=== PATIENT | female | born 1980 | race African-American/Black ===

== ENCOUNTER → 2017-07-13 | Outpatient (CLI) | payer MEDICAID ==
--- NOTE | 2017-07-13 16:24 | RADIOLOGY REPORT (SQ) ---
EXAM DESCRIPTION: U/S OB 14+ TRNABD 1GES W/O DOP COMPLETED DATE/TIME: 07/13/2017 2:36 pm REASON FOR STUDY: ENCOUNTER FOR SUPERVISION OF OTHER NORMAL , SECOND TRIMESTER (Z34. Z34.82 ENCOUNTER FOR SUPRVSN OF NORMAL , SECOND TRI COMPARISON: No previous imaging this TECHNIQUE: Static and Dynamic grayscale imaging performed of gravid uterus using transabdominal appr oach. Additional selected color Doppler and spectral images recorded. All stored on PACS. LIMITATIONS: None. FINDINGS: EGA: 26 weeks 4 days JOSE: 10/15/2017 EFW: 892 grams PERCENTILE: 42nd percentile JEANNIE: Largest pocket 4 cm PLACENTA: Posterior GRADE: I PRESENTATION: Cephalic. ANATOMY: HEART RATE: 150 beats per minute. FOUR CHAMBER HEART: Visualized. THREE VESSEL CORD: Yes. CORD INSERTION: Visualized. KIDNEYS AND BLADDER: Visualized. Appear normal. STOMACH: Visualized. Appears normal. SPINE: Normal as visualized. BRAIN AND LATERAL VENTRICLES: Limited view, head in the maternal pelvis, posterior fossa struct ures not well visualized. OTHER: No other significant finding. MATERNAL ADNEXA: Maternal ovaries not visualized. CERVICAL LENGTH: 3.6 cm Closed. OTHER: No other significant finding. IMPRESSION: LIVING INTRAUTERINE . ESTIMATED GESTATIONAL AGE 26 weeks 4 days NO VISUALIZED ANOMALIES. Trimester of : Second trimester - 13 weeks 1 day to 27 weeks 6 days. TECHNICAL DOCUMENTATION: JOB ID: [id number] [email or web address]- All Rights Reserved
== END ==
LOC: RAD 13:38
PROVIDERS: ATTEND Nurse Practitioner Women's Health
DX: Z34.82 Encounter for supervision of other normal pregnancy, second trimester (principal)
CPT/HCPCS: 76805

== ENCOUNTER 2017-11-06 09:00 | Inpatient (IN) | payer MEDICAID ==
--- NOTE | 2017-11-06 21:32 | Admission Physical ---
Datetime Report Generated by CPN: 11/06/2017 21:32 CURRENT ADMISSION Chief Complaint: Uterine Contractions Indication for Induction: Not Applicable Indication for Induction: Postterm, Intrauterine ; Active Labor Admit Plan: Admit to Unit; Initiate Labor Protocol Admit Plan- Other: patient not seen in OB office since 2016. Was supposed to come for assessment at that visit due to oligo but did not come. ALLERGIES Medication Allergies: Yes Medication Allergies: No Known Drug Allergies (07/30/2015) Medication Allergies: Sulfas Latex: No Latex Allergies Food Allergies: n/a Environmental Allergies: n/a OBSTETRICAL HISTORY EDC: 10/16/2017 00:00 : 3 Para: 2 Term: 2 : 0 SAB: 0 IAB: 0 Ectopic: 0 Livin Cesareans: 0 VBACs: 0 Multiple Births: 0 Gestational Diabetes: No Rh Sensitization: No Incompetent Cervix: No CHLOÉ: No Infertility: No ART Treatment: No Uterine Anomaly: No IUGR: No Hx Previous C/S: No Macrosomia: No Hx Loss/Stillborn: No PIH: No Hx : No Placenta Previa/Abruption: No Depression/PP Depression: No PTL/PROM: No Post Hemorrhage: Yes Obstetrical History Comments: G1 2013, male, , hemorrhage G2 2014, male, , 10lb baby G3 current, lpnc SEE RECORDS Alcohol: No Marijuana : No Cocaine: No Other Illicit Drugs: No Cigarettes: Current Everyday Smoker. [id number] MEDICAL HISTORY Diabetes: No Blood Transfusion: No Pulmonary Disease (Asthma, TB): No Breast Disease: No Hypertension: No Admissions Manager Rn Surgery: No Heart Disease: No Hosp/Surgery: Yes Autoimmune Disorder: No Anesthetic Complications: No Kidney Disease: No Abnormal Pap Smear: No Neuro/Epilepsy: No Psychiatric Disorders: No Other Medical Diseases: No Hepatitis/Liver Disease: No Significant Family History: No Varicosities/Phlebitis: No Trauma/Violence : No Thyroid Dysfunction: No Medical History Comments: anemia, childbirth INFECTIOUS HISTORY Gonorrhea: No Genital Herpes: Yes Chlamydia: No Tuberculosis: No Syphilis: No Hepatitis: No HIV/AIDS Exposure: No Rash or Viral Illness: No HPV: No Infectious History Comments: trichomonas PHYSICAL EXAM General: Normal HEENT: Normal Neurologic: Normal Thyroid: Normal Heart: Normal Lungs: Normal Breast: Normal Back: Normal Abdomen: Normal Genitourinary Exam: Normal Extremities: Normal DTRs: Normal Pelvic Type: Adequate Vital Signs: Reviewed VAGINAL EXAM Dilatation: 9 Effacement: 100 Station: 2 MEMBRANES Pooling: Positive Membranes: Ruptured Amniotic Fluid Color: Meconium, Heavy FETUS A EGA: 43.0 Monitoring: External US FHR- Baseline: 150 Variability: Moderate 6-25bpm Accelerations: 10X10 Decelerations: None FHR Category: Category II Estimated Weight (gm): 4000 Presentation: Vertex PLANS FOR LABOR AND DELIVERY Labor and Delivery: None Pain Management: Natural; Medications; Epidural Feeding Preference: Formula Benefit of Breast Feed Discussed: Yes Circumcision: No INFORMED CONSENT Signature: with User ID: [email or web address]
[2017-11-06] MEDS ORDERED: PROMETHAZINE HCL 25 MG TABLET PO PRN (21:40)
[2017-11-06] MEDS ORDERED: PROMETHAZINE HCL INJ 25 MG/1 ML VIAL IV PRN (21:40)
[2017-11-06] MEDS ORDERED: DIPHENHYDRAMINE HCL 25 MG CAPSULE PO PRN (21:40)
[2017-11-06] MEDS ORDERED: PSEUDOEPHEDRINE HCL 30 MG TABLET PO PRN (21:40)
[2017-11-06] MEDS ORDERED: ACETAMINOPHEN 650 MG SUPP.RECT PR PRN (21:40)
[2017-11-06] MEDS ORDERED: PROMETHAZINE HCL 25 MG SUPP.RECT PR PRN (21:40)
[2017-11-06] MEDS ORDERED: GLYCERIN/WITCH HAZEL LEAF 1 EACH MED..PAD TP PRN (21:40)
[2017-11-06] MEDS ORDERED: ACETAMINOPHEN 325 MG TABLET PO PRN (21:40)
[2017-11-06] MEDS ORDERED: IBUPROFEN 800 MG TABLET ONE (22:45)
[2017-11-07] MEDS: FAMOTIDINE 20 MG TABLET PO SCH ×3 (00:06→22:45)
[2017-11-07] MEDS ORDERED: BENZOCAINE/MENTHOL AEROSOL SPRAY 56 ML TOP PRN (01:33)
[2017-11-07] MEDS ORDERED: MEASLES,MUMPS&RUBELLA VACC/PF 0.5 ML VIAL SUBCUT PRN (01:33)
[2017-11-07] MEDS ORDERED: DIBUCAINE 1% OINTMENT 28 GM PR PRN (01:33)
[2017-11-07] MEDS ORDERED: ZOLPIDEM TARTRATE 5 MG TABLET PO PRN (01:33)
[2017-11-07] MEDS ORDERED: DIPH/PERTUSS(ACELL)/TETANUS VAC/PF 0.5 ML SYR (>=10YO) IM PRN (01:33)
[2017-11-07] MEDS ORDERED: ACETAMINOPHEN WITH CODEINE #3 TABLET PO PRN ×2 (01:33)
[2017-11-07] MEDS ORDERED: MISOPROSTOL 0.1 MG TABLET PR ONE (01:45)
[2017-11-07 03:22] LABS: ABSOLUTE EOSINOPHILS # (AUTO) 0.1 10^3/uL (0.0-0.6); ABSOLUTE LYMPHOCYTES (AUTO) 2.7 10^3/uL (0.5-4.7); ABSOLUTE MONOCYTES (AUTO) 1.1 10^3/uL (0.1-1.4); BASOPHILS % (AUTO) 0.3 % (0-2); EOSINOPHILS % (AUTO) 0.4 % (0-6); HEMATOCRIT 30.9 % (36.0-47.0); HEMOGLOBIN 9.8 g/dL (12.0-15.5); LYMPHOCYTES % (AUTO) 19.6 % (13-45); MEAN CORPUSCULAR HEMOGLOBIN 24.6 pg (27.0-33.4); MEAN CORPUSCULAR HGB CONC 31.7 g/dL (32.0-36.0); MEAN CORPUSCULAR VOLUME 78 fl (80-97); MONOCYTES % (AUTO) 8.1 % (3-13); PLATELET COUNT 205 10^3/uL (150-450); RED BLOOD COUNT 3.98 10^6/uL (3.72-5.28); RED CELL DISTRIBUTION WIDTH 16.6 % (11.5-14.0); SEGMENTED NEUTROPHILS % (AUTO) 71.6 % (42-78); TOTAL CELLS COUNTED % (AUTO) 100 %; WHITE BLOOD COUNT 13.9 10^3/uL (4.0-10.5)
[2017-11-07] MEDS: IBUPROFEN 800 MG TABLET PO SCH ×3 (06:34→22:43)
[2017-11-07 06:49] LABS: HEMATOCRIT 22.1 % (36.0-47.0); MEAN CORPUSCULAR HEMOGLOBIN 25.1 pg (27.0-33.4); MEAN CORPUSCULAR HGB CONC 32.3 g/dL (32.0-36.0); MEAN CORPUSCULAR VOLUME 78 fl (80-97); PLATELET COUNT 139 10^3/uL (150-450); RED BLOOD COUNT 2.85 10^6/uL (3.72-5.28); RED CELL DISTRIBUTION WIDTH 16.4 % (11.5-14.0); WHITE BLOOD COUNT 14.6 10^3/uL (4.0-10.5)
[2017-11-07 07:37] LABS: HEMOGLOBIN 7.1 g/dL (12.0-15.5)
--- NOTE | 2017-11-07 09:16 | PDOC PROGRESS REPORT ---
Subjective-OB Subjective: Post Delivery Day: 37 year old. Denies any needs at this time Physical Exam (OB) Vital Signs: Temp Pulse Resp BP Pulse Ox 98.3 F 86 18 125/93 H 100 11/07/17 07:51 11/07/17 07:51 11/07/17 07:51 11/07/17 07:51 11/07/17 07:51 Intake & Output 11/06/17 11/07/17 11/08/17 06:59 06:59 06:59 Weight 92.27 kg - General In distress: None - PIH/Pre-Eclampsia DTR's: 1 + Clonus: Negative Headache: Present Epigastric Pain: No Visual Changes: No - Lochia Lochia Amount: Small 10-25 ml Lochia Color: Rubra/Red - Abdomen Description: Soft, Round Hernia Present: No Flatus Presence: Present Fundal Description: Firm, Non-Midline Describe if Not Midline: slightly deviated to the left Fundal Height: u/u - u/2 - Respiratory Breath sounds: Clear - Extremities Calf: Normal, Nontender Objective-Diagnostic Laboratory: 11/07/17 06:30 11/06/17 11/06/17 11/07/17 14:31 14:31 06:30 WBC 13.9 H 14.6 H RBC 3.98 2.85 L Hgb 9.8 L 7.1 L D Hct 30.9 L 22.1 L MCV 78 L 78 L MCH 24.6 L 25.1 L MCHC 31.7 L 32.3 RDW 16.6 H 16.4 H Plt Count 205 139 L Seg Neutrophils % 71.6 Lymphocytes % 19.6 Monocytes % 8.1 Eosinophils % 0.4 Basophils % 0.3 Absolute Neutrophils 10.0 H Absolute Lymphocytes 2.7 Absolute Monocytes 1.1 Absolute Eosinophils 0.1 Absolute Basophils 0.0 Blood Type B POSITIVE Antibody Screen NEGATIVE Assessment and Plan(PN) - Assessment and Plan (1) Normal vaginal delivery Is this a current diagnosis for this admission?: Yes - Time Spent with Patient Time with patient: Less than 15 minutes - Disposition Anticipated Discharge: Home Within: within 24 hours - continue present plan of management
[2017-11-07] MEDS: SENNOSIDES/DOCUSATE 8.6-50 MG 1 EACH TABLET PO SCH (11:47)
[2017-11-07] MEDS: DOCUSATE SODIUM 100 MG CAPSULE PO SCH ×2 (11:47→18:09)
[2017-11-07] MEDS: FERROUS SULFATE 325 MG TABLET PO SCH ×2 (11:48→18:09)
[2017-11-07] MEDS: PRENATAL VITAMIN W DHA CAPSULE PO SCH (11:48)
[2017-11-08] MEDS: IBUPROFEN 800 MG TABLET PO SCH ×3 (05:28→22:31)
[2017-11-08] MEDS: PRENATAL VITAMIN W DHA CAPSULE PO SCH (09:10)
[2017-11-08] MEDS: DOCUSATE SODIUM 100 MG CAPSULE PO SCH ×2 (09:10→18:43)
[2017-11-08] MEDS: SENNOSIDES/DOCUSATE 8.6-50 MG 1 EACH TABLET PO SCH (09:10)
[2017-11-08] MEDS: FERROUS SULFATE 325 MG TABLET PO SCH ×2 (09:10→18:42)
[2017-11-08] MEDS: FAMOTIDINE 20 MG TABLET PO SCH ×2 (09:10→22:32)
--- NOTE | 2017-11-08 09:18 | PDOC PROGRESS REPORT ---
Subjective-OB Subjective: Post Delivery Day: 37 year old. Denies any needs at this time Doing well, baby in NICU, moderate bleeding, OOB in room, no fever, eating well , voiding Physical Exam (OB) Vital Signs: Temp Pulse Resp BP Pulse Ox 97.4 F 99 18 146/89 H 100 11/08/17 07:52 11/08/17 07:52 11/08/17 07:52 11/08/17 07:52 11/08/17 07:52 Intake & Output 11/07/17 11/08/17 11/09/17 06:59 06:59 06:59 Weight 92.27 kg - PIH/Pre-Eclampsia DTR's: 2 + Clonus: Positive Headache: Present Epigastric Pain: No Visual Changes: No - Lochia Lochia Amount: Scant < 10 ml Lochia Color: Rubra/Red - Abdomen Description: Soft Hernia Present: No Fundal Description: Firm, Midline Describe if Not Midline: slightly deviated to the left Fundal Height: u/u - u/2 Objective-Diagnostic Laboratory: 11/07/17 06:30 Assessment and Plan(PN) - Assessment and Plan (1) hemorrhage of vagina Is this a current diagnosis for this admission?: Yes (2) Anemia Qualifiers: Other causes of anemia: acute posthemorrhagic Is this a current diagnosis for this admission?: Yes (3) Normal vaginal delivery Is this a current diagnosis for this admission?: Yes - Time Spent with Patient Time with patient: Less than 15 minutes Medications reviewed and adjusted accordingly: Yes - Disposition Anticipated Discharge: Home Within: within 24 hours - borderline BP, will keep another 24 hours and monitor BP and bleeding
[2017-11-09] MEDS: IBUPROFEN 800 MG TABLET PO SCH ×3 (06:22→21:27)
[2017-11-09] MEDS: SENNOSIDES/DOCUSATE 8.6-50 MG 1 EACH TABLET PO SCH (09:22)
[2017-11-09] MEDS: DOCUSATE SODIUM 100 MG CAPSULE PO SCH ×2 (09:22→18:06)
[2017-11-09] MEDS: FAMOTIDINE 20 MG TABLET PO SCH ×2 (09:22→21:27)
[2017-11-09] MEDS: PRENATAL VITAMIN W DHA CAPSULE PO SCH (09:22)
[2017-11-09] MEDS: FERROUS SULFATE 325 MG TABLET PO SCH ×2 (09:23→18:06)
[2017-11-09 10:57] LABS: MEAN CORPUSCULAR HEMOGLOBIN 25.6 pg (27.0-33.4); MEAN CORPUSCULAR HGB CONC 33.5 g/dL (32.0-36.0); MEAN CORPUSCULAR VOLUME 77 fl (80-97); PLATELET COUNT 221 10^3/uL (150-450); RED BLOOD COUNT 2.74 10^6/uL (3.72-5.28); RED CELL DISTRIBUTION WIDTH 16.9 % (11.5-14.0); WHITE BLOOD COUNT 9.4 10^3/uL (4.0-10.5)
--- NOTE | 2017-11-09 13:19 | PDOC PROGRESS REPORT ---
Subjective-OB Subjective: Post Delivery Day: 37 year old G3 now P3. Ambulating without difficulty. Denies SOB or dizziness, but does report feeling kind of "floating" unsure if it is because she is so tired or because she does not have her glasses on her. Baby still in NICU but doing better. Denies RUQ pain, headache or other concerns. Denies hx of HTN. Denies any needs at this time Physical Exam (OB) Vital Signs: Temp Pulse Resp BP Pulse Ox 98.5 F 94 16 139/87 H 100 11/09/17 12:00 11/09/17 12:00 11/09/17 12:00 11/09/17 12:00 11/09/17 12:00 - General General Appearance: Appears well In distress: None - PIH/Pre-Eclampsia DTR's: 1 + Clonus: Negative Headache: Absent Epigastric Pain: No Visual Changes: No - Episiotomy/Laceration Site Condition: N/A - Lochia Lochia Amount: Small 10-25 ml Lochia Color: Rubra/Red - Abdomen Description: Soft, Round Hernia Present: No Fundal Description: Firm, Midline Describe if Not Midline: slightly deviated to the left Fundal Height: u/u - u/2 - Respiratory Respiratory Status: No respiratory distress - Extremities Upper extremity: Normal inspection Lower extremities: Normal inspection - Neurological Cognition: Normal Orientation: AAOx4 - Psychological Associated symptoms: Normal affect, Normal mood Objective-Diagnostic Laboratory: 11/09/17 10:49 11/09/17 10:49 WBC 9.4 RBC 2.74 L Hgb 7.0 L Hct 21.0 L MCV 77 L MCH 25.6 L MCHC 33.5 RDW 16.9 H Plt Count 221 Assessment and Plan(PN) - Assessment and Plan (1) Post-term beyond 42 weeks, antepartum Is this a current diagnosis for this admission?: Yes Plan: routine pp care (2) Anemia affecting in third trimester Is this a current diagnosis for this admission?: Yes Plan: will transfuse one unit of blood today per Dr. Iyer. (3) Limited care Qualifiers: Trimester: unspecified trimester Qualified Code(s): O09.30 - Supervision of with insufficient care, unspecified trimester Is this a current diagnosis for this admission?: Yes Plan: delivered, senior materials planner (4) Advanced maternal age (AMA) in Is this a current diagnosis for this admission?: Yes Plan: routine pp care (5) Vaginal delivery Is this a current diagnosis for this admission?: Yes Plan: routine pp care (6) Transient hypertension Is this a current diagnosis for this admission?: Yes Plan: Continue stay. Discussed with Dr. Iyer who recommends PIH labs and start procardia at this time. Discussed with patient who asked questions, verbalized understanding and is agreeable to plan of care. - Time Spent with Patient Time with patient: 15-25 minutes Medications reviewed and adjusted accordingly: Yes - Disposition Anticipated Discharge: Home Within: within 24 hours
[2017-11-09] MEDS ORDERED: NORMAL SALINE 250 ML IV PRN (13:20)
[2017-11-09] MEDS ORDERED: NIFEDIPINE 30 MG TAB.ER.24 PO SCH (14:00)
[2017-11-09 14:02] LABS: ALANINE AMINOTRANSFERASE 20 U/L (9-52); ALBUMIN 2.6 g/dL (3.5-5.0); ALKALINE PHOSPHATASE 157 U/L (38-126); ANION GAP 6 (5-19); ASPARTATE AMINO TRANSFERASE 37 U/L (14-36); BILIRUBIN,DIRECT 0.2 mg/dL (0.0-0.4); BILIRUBIN,TOTAL 0.5 mg/dL (0.2-1.3); BLOOD UREA NITROGEN 7 mg/dL (7-20); CALCIUM 8.7 mg/dL (8.4-10.2); CARBON DIOXIDE 30 mmol/L (22-30); CHLORIDE 104 mmol/L (98-107); GLUCOSE 74 mg/dL (75-110); POTASSIUM 3.6 mmol/L (3.6-5.0); SODIUM 139.9 mmol/L (137-145); TOTAL PROTEIN 4.9 g/dL (6.3-8.2)
[2017-11-09 21:37] LABS: ABSOLUTE BASOPHILS # (AUTO) 0.1 10^3/uL (0.0-0.2); ABSOLUTE EOSINOPHILS # (AUTO) 0.2 10^3/uL (0.0-0.6); ABSOLUTE LYMPHOCYTES (AUTO) 2.7 10^3/uL (0.5-4.7); ABSOLUTE MONOCYTES (AUTO) 0.7 10^3/uL (0.1-1.4); ABSOLUTE NEUT (AUTO) 6.9 10^3/uL (1.7-8.2); BASOPHILS % (AUTO) 0.7 % (0-2); EOSINOPHILS % (AUTO) 2.1 % (0-6); HEMATOCRIT 24.6 % (36.0-47.0); HEMOGLOBIN 8.3 g/dL (12.0-15.5); LYMPHOCYTES % (AUTO) 25.4 % (13-45); MEAN CORPUSCULAR HEMOGLOBIN 26.5 pg (27.0-33.4); MEAN CORPUSCULAR HGB CONC 33.8 g/dL (32.0-36.0); MEAN CORPUSCULAR VOLUME 78 fl (80-97); PLATELET COUNT 260 10^3/uL (150-450); RED BLOOD COUNT 3.14 10^6/uL (3.72-5.28); RED CELL DISTRIBUTION WIDTH 17.1 % (11.5-14.0); SEGMENTED NEUTROPHILS % (AUTO) 64.8 % (42-78); TOTAL CELLS COUNTED % (AUTO) 100 %; WHITE BLOOD COUNT 10.6 10^3/uL (4.0-10.5)
[2017-11-09 22:06] LABS: ALANINE AMINOTRANSFERASE 28 U/L (9-52); ALBUMIN 3.1 g/dL (3.5-5.0); ALKALINE PHOSPHATASE 150 U/L (38-126); ANION GAP 7 (5-19); ASPARTATE AMINO TRANSFERASE 47 U/L (14-36); BILIRUBIN,DIRECT 0.1 mg/dL (0.0-0.4); BILIRUBIN,TOTAL 0.7 mg/dL (0.2-1.3); BLOOD UREA NITROGEN 7 mg/dL (7-20); CARBON DIOXIDE 31 mmol/L (22-30); CHLORIDE 102 mmol/L (98-107); GLUCOSE 71 mg/dL (75-110); LDH 883 U/L (313-618); POTASSIUM 3.7 mmol/L (3.6-5.0); SODIUM 139.6 mmol/L (137-145); TOTAL PROTEIN 5.6 g/dL (6.3-8.2); URIC ACID 5.2 mg/dL (2.5-7.0)
[2017-11-10] MEDS: IBUPROFEN 800 MG TABLET PO SCH (06:36)
[2017-11-10] MEDS: DOCUSATE SODIUM 100 MG CAPSULE PO SCH (09:07)
[2017-11-10] MEDS: SENNOSIDES/DOCUSATE 8.6-50 MG 1 EACH TABLET PO SCH (09:07)
[2017-11-10] MEDS: FERROUS SULFATE 325 MG TABLET PO SCH (09:08)
[2017-11-10] MEDS: FAMOTIDINE 20 MG TABLET PO SCH (09:08)
--- NOTE | 2017-11-10 09:10 | PDOC PROGRESS REPORT ---
Subjective-OB Subjective: Post Delivery Day: 37 year old. Denies any needs at this time. Ready to go home. Physical Exam (OB) Vital Signs: Temp Pulse Resp BP Pulse Ox 97.9 F 75 20 115/67 100 11/10/17 05:00 11/10/17 05:00 11/10/17 05:00 11/10/17 05:00 11/10/17 05:00 Intake & Output 11/09/17 11/10/17 11/11/17 06:59 06:59 06:59 Intake Total 0 Balance 0 - PIH/Pre-Eclampsia DTR's: 1 + Clonus: Negative Headache: Absent Epigastric Pain: No Visual Changes: No - Lochia Lochia Amount: Small 10-25 ml Lochia Color: Rubra/Red - Abdomen Description: Soft, Round Hernia Present: No Bowel Sounds: Normoactive Flatus Presence: Present Stool: Yes Fundal Description: Firm, Midline Describe if Not Midline: slightly deviated to the left Fundal Height: u/u - u/2 Objective-Diagnostic Laboratory: 11/09/17 21:29 11/09/17 21:29 11/06/17 11/09/17 11/09/17 14:31 10:49 10:49 WBC 9.4 RBC 2.74 L Hgb 7.0 L Hct 21.0 L MCV 77 L MCH 25.6 L MCHC 33.5 RDW 16.9 H Plt Count 221 Seg Neutrophils % Lymphocytes % Monocytes % Eosinophils % Basophils % Absolute Neutrophils Absolute Lymphocytes Absolute Monocytes Absolute Eosinophils Absolute Basophils Sodium Potassium Chloride Carbon Dioxide Anion Gap BUN Creatinine Est GFR ( Amer) Est GFR (Non-Af Amer) Glucose Uric Acid 5.0 Calcium Total Bilirubin AST ALT Alkaline Phosphatase Total Protein Albumin Blood Type B POSITIVE Antibody Screen NEGATIVE 11/09/17 11/09/17 11/09/17 10:49 13:49 21:29 WBC 10.6 H RBC 3.14 L Hgb 8.3 L Hct 24.6 L MCV 78 L MCH 26.5 L MCHC 33.8 RDW 17.1 H Plt Count 260 Seg Neutrophils % 64.8 Lymphocytes % 25.4 Monocytes % 7.0 Eosinophils % 2.1 Basophils % 0.7 Absolute Neutrophils 6.9 Absolute Lymphocytes 2.7 Absolute Monocytes 0.7 Absolute Eosinophils 0.2 Absolute Basophils 0.1 Sodium 139.9 Potassium 3.6 Chloride 104 Carbon Dioxide 30 Anion Gap 6 BUN 7 Creatinine 0.73 Est GFR ( Amer) > 60 Est GFR (Non-Af Amer) > 60 Glucose 74 L Uric Acid Calcium 8.7 Total Bilirubin 0.5 AST 37 H ALT 20 Alkaline Phosphatase 157 H Total Protein 4.9 L Albumin 2.6 L Blood Type B POSITIVE Antibody Screen NEGATIVE 11/09/17 21:29 WBC RBC Hgb Hct MCV MCH MCHC RDW Plt Count Seg Neutrophils % Lymphocytes % Monocytes % Eosinophils % Basophils % Absolute Neutrophils Absolute Lymphocytes Absolute Monocytes Absolute Eosinophils Absolute Basophils Sodium 139.6 Potassium 3.7 Chloride 102 Carbon Dioxide 31 H Anion Gap 7 BUN 7 Creatinine 0.91 Est GFR ( Amer) > 60 Est GFR (Non-Af Amer) > 60 Glucose 71 L Uric Acid 5.2 Calcium 9.0 Total Bilirubin 0.7 AST 47 H ALT 28 Alkaline Phosphatase 150 H Total Protein 5.6 L Albumin 3.1 L Blood Type Antibody Screen Assessment and Plan(PN) - Time Spent with Patient Medications reviewed and adjusted accordingly: Yes - Disposition Anticipated Discharge: Home
--- NOTE | 2017-11-10 09:17 | PDOC DISCHARGE SUMMARY ---
Final Diagnosis Discharge Date: 11/10/17 - Final Diagnosis (1) Advanced maternal age (AMA) in Is this a current diagnosis for this admission?: Yes (2) Anemia Is this a current diagnosis for this admission?: Yes (3) Anemia affecting in third trimester Is this a current diagnosis for this admission?: Yes (4) History of CRISTAL positive for HSV Is this a current diagnosis for this admission?: Yes (5) Limited care Is this a current diagnosis for this admission?: Yes (6) Post-term beyond 42 weeks, antepartum Is this a current diagnosis for this admission?: Yes (7) Transient hypertension Is this a current diagnosis for this admission?: Yes (8) Vaginal delivery Is this a current diagnosis for this admission?: Yes Discharge Data - Discharge Medication Prescriptions: Ibuprofen [Motrin 800 mg Tablet] 800 mg PO Q8HP PRN #30 tablet PRN Reason: Docusate Sodium [Colace 100 mg Capsule] 100 mg PO BID #60 capsule Ferrous Sulfate [Feosol 325 mg Tablet] 325 mg PO BID #60 tablet Home Medications: Pnv with Ca,No.72/Iron/FA [ Plus Tablet] 1 tab PO DAILY 11/19/13 Acyclovir [Zovirax] 400 mg PO DAILY 11/06/17 Docusate Sodium [Colace 100 mg Capsule] 100 mg PO BID #60 capsule 11/09/17 Ferrous Sulfate [Feosol 325 mg Tablet] 325 mg PO BID #60 tablet 11/09/17 Ibuprofen [Motrin 800 mg Tablet] 800 mg PO Q8HP PRN #30 tablet 11/09/17 Gestational Age: 43 wks Reason(s) for Admission: Onset of Labor Procedures: Ultrasound Intrapartum Procedure(s): Spontaneous Vaginal Delivery - [place] Data Baby 1 Male at 1 minute: 8 at 5 minutes: 7 Weight: 4.139 kg Home with Mother: Yes Complications: Yes - Meconium - Diagnosis Test Laboratory: Temp Pulse Resp BP Pulse Ox 97.9 F 75 20 115/67 100 11/10/17 05:00 11/10/17 05:00 11/10/17 05:00 11/10/17 05:00 11/10/17 05:00 11/06/17 11/07/17 11/09/17 14:31 06:30 10:49 RBC 3.98 2.85 L 2.74 L Hgb 9.8 L 7.1 L D 7.0 L Hct 30.9 L 22.1 L 21.0 L 11/09/17 21:29 RBC 3.14 L Hgb 8.3 L Hct 24.6 L - Discharge information/Instructions Discharge Activity: Activity As Tolerated, Balance Activity w/Rest, No Lifting Over 10 Pounds, Pelvic Rest, Slowly Increase Activity, No tub bath, Walk Frequently Discharge Diet: Regular Disposition: HOME, SELF-CARE Follow up with: [facility] in: 4, Weeks
[2017-11-10 09:23] VITALS: BP 135/86
[2017-11-10] MEDS: PRENATAL VITAMIN W DHA CAPSULE PO SCH (10:00)
--- NOTE | 2017-11-15 14:38 | Delivery Summary ---
Del Sum A-C Datetime Report Generated by CPN: 11/15/2017 14:38 DELIVERY PERSONNEL DELIVERY PERSONNEL: [id number] Delivery Doctor:: Annalee Dunn MD Labor and Delivery Nurse:: Ania Albarran RN Nursery Nurse:: Dacia Keating RN Donkey Engine Firer/Fireman/REGISTERED NURSE PRACTITIONER: Tejinder Handley, AUTOMOTIVE MANAGER MATERNAL INFORMATION Delivery Anesthesia: None Medications After Delivery: Pitocin Drip 20 Units/1000ml NSS Meds After Delivery Comment: cytotec 1000mcg pr Estimated Blood Loss (ml): 300 Maternal Complications: Precipitous Labor (<3hrs) Provider Comments: thick meconium c/w dysmaturity syndrome. Face wiped cleam and suctioning by myself and nursery staff. taken to nursery due to low PO2 and poor respiratory effort. LABOR SUMMARY EDC: 10/16/2017 00:00 No. Babies in Womb: 1 Attempted: No Labor Anesthesia: None LABOR INFORMATION Reason for Induction: Not Applicable Onset of Labor: 11/06/2017 11:00 Complete Dilatation: 11/06/2017 14:45 Oxytocin: N/A Group B Beta Strep: negative Antibiotics # of Doses: 0 Antibiotics Time of Last Dose: n/a Name of Antibiotic Given: n/a Steroids Given: None Reason Steroids Not Administered: Not Applicable MEMBRANES Membranes Rupture Method: Artificial Rupture of Membranes: 11/06/2017 14:46 Length of Rupture (hr): 0.05 Amniotic Fluid Color: Heavy Meconium Amniotic Fluid Amount: Scant Amniotic Fluid Odor: Normal STAGES OF LABOR Stage 1 hr: 3 Stage 1 min: 45 Stage 2 hr: 0 Stage 2 min: 4 Stage 3 hr: 0 Stage 3 min: 5 Total Time in Labor hr: 3 Total Time in Labor min: 54 VAGINAL DELIVERY Episiotomy: None Laceration #1: None Laceration Extension #1: N/A Laceration Repair: Not Applicable Sponge Count Correct: Yes Sharps Count Correct: Yes CSECTION DELIVERY Primary Indication: N/A Secondary Indication: N/A CSection Incidence: N/A Labor: N/A Elective: N/A CSection Incision: N/A BABY A INFORMATION Delivery Date/Time: 11/06/2017 14:49 Method of Delivery: Vaginal Born in Route : No : N/A Forceps: N/A Vacuum Extraction: N/A Shoulder Dystocia : No PRESENTATION/POSITION BABY A Presentation: Cephalic Cephalic Presentation: Vertex Vertex Position: Right Occipital Anterior Breech Presentation: N/A PLACENTA INFORMATION BABY A Placenta Delivery Time : 11/06/2017 14:54 Placenta Method of Delivery: Spontaneous Placenta Status: Delivered SCORES BABY A Heart Rate 1 min: >100 bpm Resp Effort 1 min: Good Cry Reflex Irritability 1 min: Cough or Sneeze or Pulls Away Muscle Tone 1 min: Active Motion Color 1 min: Blue/Pale SCORE 1 MIN: 8 Heart Rate 5 min: >100 bpm Resp Effort 5 min: Slow, Irregular Reflex Irritability 5 min: Cough or Sneeze or Pulls Away Muscle Tone 5 min: Some Flexion of Extremities Color 5 min: Body [place], Extremities Blue Resuscitation Effort 5 min: Tactile Stimulation; Oxygen SCORE 5 MIN: 7 INFORMATION BABY A Gestational Age at Delivery: 43.0 Gestational Status: Post Term- >= 42 Weeks Outcome : Liveborn Infant Condition : Stable Infant Sex: Male IDENTIFICATION BABY A Infant Verification Date/Time: 11/06/2017 15:12 ID Band Number: [id number] Mother's Name Verified: Yes RN Verifying : AMolly Moe RN Additional Verifying Personnel: Divya Ramosmelissa RN WEIGHT/LENGTH BABY A Birthweight (gm): 4125 Infant Weight (lb): 9 Weight (oz): 2 Length (in): 21.00 Length (cm): 53.34 CORD INFORMATION BABY A No. Cord Vessels: 3 Nuchal Cord : Around Neck x1, Loose Cord Blood Taken: No- unable to obtain Infant Suction: Mouth; Nose ASSESSMENT BABY A Complications: Meconium Physical Findings at Delivery: Within Normal Limits Skin to Skin: No Board Catcher/ALS Called : No Care By: Taya Tom, RN/ Transferred To: NICU BABY B INFORMATION : N/A SIGNATURES Signature: with User ID: [email or web address]
== END 2017-11-10 12:47 | disposition home or self-care (01) | DRG 774 ==
LOC: LC 09:00 → LR 14:25 → 2S 18:05 → LR 20:51 → UNDOADMIN 20:51
PROVIDERS: ADMIT Obstetrics & Gynecology; ATTEND Obstetrics & Gynecology
PROC: 10E0XZZ Delivery of Products of Conception, External Approach (ICD-10-PCS; principal; 2017-11-06)
PROC: 30233N1 Transfusion of Nonautologous Red Blood Cells into Peripheral Vein, Percutaneous Approach (ICD-10-PCS; 2017-11-09)
DX: O48.1 Prolonged pregnancy (principal); O72.1 Other immediate postpartum hemorrhage; D62 Acute posthemorrhagic anemia; Z3A.49 Greater than 42 weeks gestation of pregnancy; O99.334 Smoking (tobacco) complicating childbirth; F17.210 Nicotine dependence, cigarettes, uncomplicated; O77.0 Labor and delivery complicated by meconium in amniotic fluid; O62.3 Precipitate labor; O90.81 Anemia of the puerperium; O13.4 Gestational [pregnancy-induced] hypertension without significant proteinuria, complicating childbirth; O69.81X0 Labor and delivery complicated by cord around neck, without compression, not applicable or unspecified; Z37.0 Single live birth
CPT/HCPCS: 36415; 36430; 80053; 83615; 84550; 85025; 85027; 86592; 86850; 86900; 86901; 86920; J3490; P9016

== ENCOUNTER 2019-06-21 09:32 | Emergency (ER) | payer SELFPAY ==
--- NOTE | 2019-06-21 09:48 | ER Document Report ---
HPI - HPI Time Seen by Provider: 06/21/19 09:47 Pain Level: 1 Notes: 38-year-old female presents the ED with complaints of left lower leg sore that she has had for the last month, states rash is itchy, she has been itching, has not tried any pgla-ske-zfrjalf medications. Patient is wearing acrylic nails, states she is noticed some purulent drainage coming from wound approximately 4 days ago. Has not tried any heat or ice. States she does have a history of eczema. Denies fevers, chills, chest pain,palpitations, shortness of breath, dyspnea, nausea, vomiting, diarrhea, abdominal pain, hematuria,blurred vision, double vision, loss of vision, speech changes, LH, dizziness, syncope, headaches, wheezing, ST, URI, neck pain, weakness, bowel or bladder dysfunction, saddle anesthesia, numbness or tingling in bilateral upper or lower extremities equally, muscle paralysis, weakness in bilateral upper or lower extremities equally. - REPRODUCTIVE Reproductive: DENIES: : Past Medical History - General Information source: Patient - Social History Smoking Status: Unknown if Ever Smoked Family History: Reviewed & Not Pertinent Vertical Provider Document - CONSTITUTIONAL Agree With Documented VS: Yes Exam Limitations: No Limitations General Appearance: WD/WN Notes: PHYSICAL EXAMINATION: GENERAL: Well-appearing, well-nourished and in no acute distress. HEAD: Atraumatic, normocephalic. EYES: Pupils equal round and reactive to light, extraocular movements intact, conjunctiva are normal. ENT: Nares patent, oropharynx clear without exudates. Moist mucous membranes. NECK: Normal range of motion, supple without lymphadenopathy LUNGS: Breath sounds clear to auscultation bilaterally and equal. No wheezes rales or rhonchi. HEART: Regular rate and rhythm without murmurs ABDOMEN: Soft, nontender, nondistended abdomen. No guarding, no rebound. No masses appreciated. Female : deferred 30 Musculoskeletal: Normal range of motion, no pitting or edema. No cyanosis. Dtr + 2 in BLE. Full motor and sensory function to BLE equally. Strength 5 out of 5 bilaterally equally. Ankle examination normal. Squeeze test negative. Hip examination normal. Pulses + 2 bilaterally and equally.negative squeeze bilaterally and equally. NEUROLOGICAL: Cranial nerves grossly intact. Normal speech, normal gait. Normal sensory, motor exams. Noted lateral aspect of left tib-fib approximately 5 cm x 6 cm area of erythema with slight induration, no open wounds or drainage. PSYCH: Normal mood, normal affect. SKIN: Warm, Dry, normal turgor, no rashes or lesions noted. - INFECTION CONTROL TRAVEL OUTSIDE OF THE [place] IN LAST 30 DAYS: No Course - Re-evaluation Re-evalutation: 06/21/19 10:41 Afebrile, vitals stable no distress. Nurse's notes reviewed. Tib-fib x-ray negative for any acute fracture dislocation or gas notation. Will start patient on oral clindamycin 300 mg every 6 for 7 days as well as a steroid ointment for her eczema. Advised patient to not scratch the area, advised to cut down her nails. Patient had a area of eczema that had become infected due to her scratching. Will up with primary care provider within the next 24 to 48 hours. After performing a Medical Screening Examination, I estimate there is LOW risk for OPEN FRACTURE, COMPARTMENT SYNDROME, TENDON RUPTURE, ACUTE NEUROVASCULAR INJURY, or RETAINED FOREIGN BODY, thus I consider the discharge disposition reasonable. Also, there is no evidence or peritonitis, sepsis, or toxicity. I have reevaluated this patient multiple times and no significant life threatening changes are noted. The patient and I have discussed the diagnosis and risks, and we agree with discharging home with close follow-up with the understanding that symptoms and presentations can change. We also discussed returning to the Emergency Department immediately if new or worsening symptoms occur. We have discussed the symptoms which are most concerning (e.g., changing or worsening pain, fever, numbness, weakness, cool or painful digits) that necessitate immediate return. - Vital Signs Vital signs: Temp Pulse Resp BP Pulse Ox 98.2 F 94 14 121/83 99 06/21/19 09:38 06/21/19 09:38 06/21/19 09:38 06/21/19 09:38 06/21/19 09:38 Discharge - Discharge Clinical Impression: Cellulitis, Eczema Condition: Stable Disposition: HOME, SELF-CARE Instructions: Atopic Dermatitis (Eczema) ([facility]), Cellulitis ([facility]), MRSA Cellulitis ([facility]) Additional Instructions: Take antibiotic as directed, use steroid ointment as directed. Avoid scratching area. Please follow-up with your primary care provider within the next 24 to 48 hours. The x-ray of your tibia CBI was negative for any acute fracture dislocation or bone infection Prescriptions: Triamcinolone Acetonide [Aristocort 0.025% Cream] 1 applic TP BID #30 gram Clindamycin HCl 300 mg PO Q6H #28 capsule Forms: Return to Work Referrals: LEONCIO MORALES MD [ACTIVE STAFF] - Follow up as needed
--- NOTE | 2019-06-21 10:45 | RADIOLOGY REPORT (SQ) ---
EXAM DESCRIPTION: TIBIA FIBULA LEFT COMPLETED DATE/TIME: 06/21/2019 10:28 am REASON FOR STUDY: r/o fx/fb COMPARISON: None. NUMBER OF VIEWS: Two views. TECHNIQUE: Two radiographic images acquired of the left tibia and fibula to include the knee and ank le in at least one projection. LIMITATIONS: None. FINDINGS: MINERALIZATION: Normal. BONES: No acute fracture or dislocation. No worrisome bone lesions. SOFT TISSUES: No obvious swelling or foreign body. OTHER: No other significant finding. IMPRESSION: NEGATIVE STUDY OF THE LEFT TIBIA AND FIBULA. NO RADIOGRAPHIC EVIDENCE OF ACUTE INJURY. TECHNICAL DOCUMENTATION: JOB ID: [id number] [email or web address]- All Rights Reserved Reading location - IP/workstation name: [email or web address]
[2019-06-21 11:00] VITALS: BP 115/68
== END 2019-06-21 11:04 | disposition home or self-care (01) ==
LOC: ER 09:32
DX: L30.9 Dermatitis, unspecified (principal); L03.90 Cellulitis, unspecified

== ENCOUNTER 2019-12-10 11:08 | Emergency (ER) | payer SELFPAY ==
[2019-12-10 11:21] VITALS: BP 115/78
[2019-12-10] MEDS ORDERED: FLUCONAZOLE 100 MG TABLET PO ONE (12:21)
--- NOTE | 2019-12-10 12:21 | ER Document Report ---
HPI - HPI Time Seen by Provider: 12/10/19 12:09 Pain Level: 3 Notes: 39-year-old female patient presents emergency department concern for abscess. Patient reports that she has an abscess to her right buttock. She states it is already open and draining. She states that she continues to change the gauze pads. She states that she just needs to be started on antibiotics. Patient denies any fevers or history of diabetes. - REPRODUCTIVE LMP: 4feb20 Reproductive: DENIES: : Past Medical History - General Information source: Patient - Social History Smoking Status: Current Every Day Smoker Chew tobacco use (# tins/day): No Frequency of alcohol use: None Drug Abuse: None Family History: Reviewed & Not Pertinent Patient has suicidal ideation: No Patient has homicidal ideation: No Renal/ Medical History: Denies: Hx Peritoneal Dialysis Vertical Provider Document - CONSTITUTIONAL Notes: PHYSICAL EXAMINATION: GENERAL: Well-appearing, well-nourished and in no acute distress. HEAD: Atraumatic, normocephalic. EYES: Pupils equal round extraocular movements intact, conjunctiva are normal. ENT: Nares patent NECK: Normal range of motion LUNGS: No respiratory distress Musculoskeletal: Normal range of motion NEUROLOGICAL: Normal speech, normal gait. PSYCH: Normal mood, normal affect. SKIN: Area of induration and erythema, open and draining to right buttock. - INFECTION CONTROL TRAVEL OUTSIDE OF THE [place] IN LAST 30 DAYS: No Course - Re-evaluation Re-evalutation: Patient does have an abscess to her right buttock however it is already draining very nicely. Patient has had a history of these in the past. No indication for further opening. Patient will be started on antibiotics and she will also be given a dose of Diflucan as she states that she usually gets yeast infections. Strict ED return precautions were discussed, patient verbalized understanding and agreement with same. - Vital Signs Vital signs: Temp Pulse Resp BP Pulse Ox 98.2 F 87 16 115/78 100 12/10/19 11:20 12/10/19 11:20 12/10/19 11:20 12/10/19 11:20 12/10/19 11:20 Discharge - Discharge Clinical Impression: Abscess Condition: Stable Disposition: HOME, SELF-CARE Additional Instructions: You were seen for an abscess that required drainage. Please clean this area with soap and water twice daily and apply a topical antibiotic. Dress the area after each cleaning. Please return if you develop fever, vomiting, the pain at the site worsens, you notice spreading redness from the area, or you have any other symptoms that are concerning to you. Prescriptions: Doxycycline Hyclate [Vibramycin 100 mg Tablet] 100 mg PO BID #20 tablet Forms: Return to Work
== END 2019-12-10 12:24 | disposition home or self-care (01) ==
LOC: ER 11:08
DX: L02.31 Cutaneous abscess of buttock (principal); F17.200 Nicotine dependence, unspecified, uncomplicated